=== PATIENT | male | born 1995 | race Caucasian/White ===

== ENCOUNTER 2016-07-04 19:35 | Emergency (ER) | payer OTHER ==
[~2016-07-04] VITALS: Ht 188 cm; Wt 90.7 kg
[2016-07-04] MEDS ORDERED: MORPHINE 4 MG/ML 1ML SYRINGE IV ONE (22:45)
[2016-07-04] MEDS ORDERED: NS 1,000 ML IV ONE (22:45)
[2016-07-04] MEDS ORDERED: ISOVUE-370 76% 100ML VIAL (Q9967) As Ordered ONE (22:49)
[2016-07-04 23:07] LABS: BASO % 0.2 % (0.0-1.0); EOS % 0.4 % (0.0-3.0); LARGE UNSTAINED CELL # 0.2 K/mm3 (0.0-0.4); LARGE UNSTAINED CELL % 2.5 % (0.0-4.0); LYMPH # 1.7 K/mm3 (1.5-6.5); LYMPH % 20.3 % (24.0-44.0); MEAN CORPUSCULAR HEMOGLOBIN 30.5 pg (27.0-33.0); MEAN CORPUSCULAR HGB CONC 33.8 g/dl (32.0-36.5); MONO # 0.6 K/mm3 (0.0-0.8); MONO % 7.8 % (0.0-5.0); NEUTROPHILS # 5.1 K/mm3 (1.8-7.7); NEUTROPHILS % 68.9 % (36.0-66.0); PLATELET COUNT, AUTOMATED 160 k/mm3 (150-450); RED CELL DISTRIBUTION WIDTH 13.2 % (11.5-14.5); WHITE BLOOD COUNT 7.3 K/mm3 (4.0-10.0)
[2016-07-04 23:41] LABS: ALKALINE PHOSPHATASE 52 U/L (45-117); ALT/SGPT 49 U/L (12-78); AST/SGOT 63 U/L (15-37); BILIRUBIN,DIRECT 0.2 MG/DL (0.0-0.2); BILIRUBIN,TOTAL 0.5 MG/DL (0.2-1.0); BLOOD UREA NITROGEN 16 MG/DL (7-18); CALCIUM LEVEL 8.9 MG/DL (8.5-10.1); CREATININE FOR GFR 1.12 MG/DL (0.70-1.30); GLUCOSE, FASTING 81 MG/DL (70-105)
[2016-07-05 00:08] LABS: ALBUMIN 4.2 GM/DL (3.2-5.2); ALBUMIN/GLOBULIN RATIO 1.24 (1.00-1.93); ANION GAP 8 MEQ/L (8-16); CARBON DIOXIDE LEVEL 30 MEQ/L (21-32); CHLORIDE LEVEL 103 MEQ/L (98-107); POTASSIUM SERUM 4.2 MEQ/L (3.5-5.1); SODIUM LEVEL 141 MEQ/L (136-145); TOTAL PROTEIN 7.6 GM/DL (6.4-8.2)
--- NOTE | 2016-07-05 00:30 | REPUSA ---
HISTORY: Trauma. COMPARISON: None. TECHNIQUE: Multiple thin-section contiguous helically-acquired axially-displayed computed tomographic images of the cervical spine are obtained from skull base inferiorly through T1, with images filmed at soft tissue and bone window. 2D Sagittal and coronal reformatted images are performed. FINDINGS: There is normal cervical vertebral body height and alignment on this supine, non-weight bearing exam. Vertebral body mineralization is normal. All of the intervertebral disc spaces have normal height and contour. There is no herniated nucleus p ulposus, canal or foraminal stenosis. No paraspinal masses or collections. IMPRESSION: Normal CT of the cervical spine. Thank you for your kind referral of this patient.
--- NOTE | 2016-07-05 00:40 | REPUSA ---
CLINICAL HISTORY: Chest, abdominal pain. TECHNIQUE: Multiple axial and coronal CT images were obtained through the chest, abdomen and pelvis w ith IV contrast material. COMMENTS: There is no evidence of pleural or parenchymal mass. There are no pleural effusions. There is no evid ence of hilar or mediastinal lymphadenopathy. Specifically, there is no evidence for paratracheal and supraclavicular adenopathy. There is no evidence for a chest or abdominal wall nodule or mass. The h eart and great vessels are within normal limits. The liver is of uniform attenuation without mass or defect. The gallbladder is within normal limits. There is no intrahepatic or extrahepatic biliary ductal dilatation. The spleen is normal. The pancrea s is of normal contour and attenuation characteristics. There is no evidence of adrenal mass. Both kidneys demonstrate prompt and equal nephrograms. The kidn eys are normal in size, shape and configuration. There is no evidence of renal mass. There is no hydr oureter or hydronephrosis. There is no bowel wall thickening. No evidence for small or large bowel obstruction. There is no evid ence of abdominal ascites or lymphadenopathy. There is no evidence of intrinsic or extrinsic bladder mass. There is no pelvic ascites or lymphadeno parminder. The bony structures are free of lytic or blastic lesions. IMPRESSION: No evidence of acute chest, abdominal or pelvic pathology. Thank you for your kind referral of this patient.
--- NOTE | 2016-07-05 00:40 | REPUSA ---
CLINICAL HISTORY: Trauma. TECHNIQUE: Multiple axial CT images were obtained through the thoracic spine without IV contrast mate rial. MPR coronal and sagittal sequences were obtained. COMMENTS: There is no fracture visualized. The paraspinal soft tissues are unremarkable. There are no lytic or blastic lesions. The paravertebral soft tissue space is normal. IMPRESSION: Normal study. Thank you for your kind referral of this patient.
--- NOTE | 2016-07-05 00:40 | REPUSA ---
CLINICAL HISTORY: Trauma. TECHNIQUE: Multiple axial CT images were obtained through the lumbar spine without IV contrast inga martinez COMMENTS: There is no fracture visualized. The paraspinal soft tissues are unremarkable. There are no lytic or blastic lesions. IMPRESSION: Negative exam. Thank you for your kind referral of this patient.
[2016-07-05] MEDS ORDERED: TRAM50TA2 PO (01:03)
[2016-07-05 02:05] VITALS: BP 118/63
--- NOTE | 2016-07-05 09:13 | REP ---
RIGHT ANKLE: Four views of the right ankle are performed. Rounded calcific density at the tip of the medial malleolus appears to represent an old fracture. No acute fracture or dislocation is seen. The ankle mortise is anatomic. IMPRESSION: No evidence of acute fracture or dislocation. Old fracture at the tip of the medial malleolus. Signed by Iglesia Malin MD 07/05/2016 04:12 P
--- NOTE | 2016-07-05 20:35 | ECGEPIP ---
Stationary ECG Study [facility] - ED Test Date: 2016-07-04 Pat Name: VERO BROWN Department: Room: - Gender: M Hide Stretcher Hand: HymanB: 1995 Requested By: GERONIMO Vallejo Order Number: [id number] Reading MD: Nahid Long Measurements Intervals [place] Rate: 59 P: 79 NE: 198 QRS: 14 QRSD: 98 T: 33 QT: 399 QTc: 396 Interpretive Statements SINUS BRADYCARDIA INC. RBBB MODERATE VOLTAGE CRITERIA FOR LVH NO PRIORS Electronically Signed On 07-05-2016 20:35:23 EST by Nahid Long
== END 2016-07-05 02:07 | disposition home or self-care (01) ==
LOC: M ED 23:31
DX: S82.52XA Displaced fracture of medial malleolus of left tibia, initial encounter for closed fracture (principal); V47.5XXA Car driver injured in collision with fixed or stationary object in traffic accident, initial encounter; Y92.410 Unspecified street and highway as the place of occurrence of the external cause
CPT/HCPCS: 70450; 71260; 72125; 72128; 72131; 73610; 74177; 80048; 80076; 82550; 82553; 85025; 93005; 93041; 94760; 96374; 99285; Q9967

== ENCOUNTER 2017-11-15 17:49 | Emergency (ER) | payer OTHER, SELFPAY ==
[2017-11-15] MEDS: DERMABOND TOPICAL SKIN ADHESIVE TOP (19:15)
== END 2017-11-15 20:16 | disposition home or self-care (01) ==
LOC: M ED 17:49
DX: Z60.8 Other problems related to social environment (principal); S51.812A Laceration without foreign body of left forearm, initial encounter; X78.8XXA Intentional self-harm by other sharp object, initial encounter; Y92.018 Other place in single-family (private) house as the place of occurrence of the external cause; F17.210 Nicotine dependence, cigarettes, uncomplicated
CPT/HCPCS: 12001